=== PATIENT | female | born 1960 | race African-American/Black ===

== ENCOUNTER 2017-06-16 20:13 | Emergency (ER) | payer MEDICARE | END 2017-06-16 20:45 | disposition home or self-care (01) | LOC: ERS 20:13 | DX: S39.012A Strain of muscle, fascia and tendon of lower back, initial encounter (principal); I11.0 Hypertensive heart disease with heart failure; I50.9 Heart failure, unspecified; Z79.82 Long term (current) use of aspirin; Z79.899 Other long term (current) drug therapy; X50.9XXA Other and unspecified overexertion or strenuous movements or postures, initial encounter | CPT/HCPCS: 99283 ==

== ENCOUNTER 2017-12-20 15:15 | Emergency (ER) | payer MEDICARE ==
[2017-12-20 16:12] LABS: #Eosinphils 0.3 thou/uL (0.0-0.7); #Lymphocytes 1.8 thou/uL (1.20-3.40); #Monocytes 0.3 thou/uL (0.11-0.59); #Neutrophils 2.7 thou/uL (1.40-6.50); %Basophils 0.6 % (0.0-1.0); %Eosinophils 5.3 % (0.0-10.0); %Lymphocytes 34.5 % (21.0-51.0); %Monocytes 5.6 % (0.0-10.0); Mean Corpuscular HGB CONC 33.6 g/dL (32.0-36.0); Mean Corpuscular Hemoglobin 30.4 pg (27.0-31.0); Mean Corpuscular Volume 90.4 fl (81.0-99.0); Mean Platelet Volume 8.5 fL (7.4-10.4); Platelet Count 255 thou/uL (130-400); RBC Distribution Width 11.8 % (11.5-14.5); Red Blood Cell (RBC) Count 3.96 mill/uL (4.20-5.40); White Blood Cell (WBC) Count 5.1 thou/uL (4.8-10.8)
[2017-12-20] MEDS ORDERED: Acetaminophen 500 MG TAB ONE ×2 (16:13→16:15)
[2017-12-20] MEDS ORDERED: Ketorolac Tromethamine 60 MG/2 ML VIAL ONE (16:13)
--- NOTE | 2017-12-20 16:28 | RAD ---
CHEST ONE VIEW: 12/20/17 HISTORY: Chest and back pain. COMPARISON: 11/27/14. FINDINGS: The cardiac silhouette is magnified by projection. Pulmonary vasculature is unremarkable. Mediastinum is midline with left subclavian cardiac electronic device. No lobar consolidation or evidence of pne umothorax. IMPRESSION: 1. Borderline cardiomegaly. 2. Stable radiographic appearance of the chest. POS: [facility]
[2017-12-20 16:33] LABS: ALT (SGPT) 15 U/L (8-55); AST (SGOT) 18 U/L (5-34); Albumin 4.4 g/dL (3.5-5.0); Alkaline Phosphatase 84 U/L (40-150); Anion Gap 11 mmol/L (10-20); BUN (Urea Nitrogen) 20 mg/dL (9.8-20.1); Bilirubin, Total 0.2 mg/dL (0.2-1.2); Calc. Creatinine Clearance 0 mL/min (70-130); Calcium 9.4 mg/dL (7.8-10.44); Carbon Dioxide 27 mmol/L (22-29); Chloride 104 mmol/L (98-107); Estimated GFR-MDRD 68; Globulin 3.2 g/dL (2.4-3.5); Glucose 114 mg/dL (70-105); Potassium 3.7 mmol/L (3.5-5.1); Protein, Total 7.6 g/dL (6.0-8.3); Sodium 138 mmol/L (136-145)
[2017-12-20 16:38] LABS: Troponin I Less than 0.010 ng/mL (< 0.028)
--- NOTE | 2018-01-26 00:01 | EKG ---
Test Reason : Blood Pressure : / mmHG Vent. Rate : 081 BPM Atrial Rate : 081 BPM P-R Int : 152 ms QRS Dur : 076 ms QT Int : 362 ms P-R-T Axes : 056 004 -10 degrees QTc Int : 420 ms Normal sinus rhythm Minimal voltage criteria for LVH, may be normal variant Nonspecific ST and T wave abnormality Abnormal ECG Confirmed by LEATHA THOMAS ([id number]), greeting card editor TRACI NAM ([id number]) on 01/26/2018 12:00:32 AM Referred By: ROSALBA Confirmed By:LEATHA THOMAS
== END 2017-12-20 17:02 | disposition home or self-care (01) ==
LOC: ERS 15:15
DX: M62.830 Muscle spasm of back (principal); I11.0 Hypertensive heart disease with heart failure; I50.9 Heart failure, unspecified; Z79.82 Long term (current) use of aspirin; Z79.899 Other long term (current) drug therapy
CPT/HCPCS: 36415; 71045; 80053; 82553; 84484; 85025; 93005; J1885

== ENCOUNTER 2018-03-21 11:13 | Emergency (ER) | payer MEDICARE ==
[2018-03-21] MEDS ORDERED: Ketorolac Tromethamine 60 MG/2 ML VIAL ONE (12:00)
== END 2018-03-21 12:24 | disposition home or self-care (01) ==
LOC: ERS 11:13
DX: S16.1XXA Strain of muscle, fascia and tendon at neck level, initial encounter (principal); M43.6 Torticollis; I11.0 Hypertensive heart disease with heart failure; I50.9 Heart failure, unspecified; Z79.82 Long term (current) use of aspirin; Z79.899 Other long term (current) drug therapy; X58.XXXA Exposure to other specified factors, initial encounter
CPT/HCPCS: 96372; J1885

== ENCOUNTER 2018-08-21 12:26 | Day surgery (SDC) | payer MEDICARE ==
[2018-08-20 15:46] VITALS: BMI 39.4
[2018-08-21] MEDS ORDERED: PROPOFOL 200 MG/20 ML VIAL ONE (16:26)
--- NOTE | 2018-08-21 19:22 | OP ---
DATE OF PROCEDURE: 08/21/2018 TITLE OF PROCEDURE: Colonoscopy. PRE-PROCEDURE DIAGNOSES: 1. High-risk colon cancer screening. 2. Family history of colon cancer in a brother at age 62. POSTPROCEDURE DIAGNOSES: 1. Exam to cecum; good bowel preparation. 2. Mildly tortuous transverse colon. 3. Otherwise normal colonoscopy; no polyp or diverticulum seen. PROCEDURE IN DETAIL: Written informed consent was obtained. The patient was brought to the endoscopy suite. Total intravenous anesthesia was provided by Dr. Ezequiel Tirado. The patient was placed in the left lateral decubitus position. A digital rectal exam was performed and was normal. A Pentax video colonoscope was inserted through the anal canal and advanced under direct visualization to the cecum. Position in the cecum was verified by clear identification of the appendiceal orifice and the ileocecal valve. The quality of the bowel preparation was good. Each colon segment was examined carefully as the colonoscope was slowly withdrawn from the cecum. Vascular pattern and haustral folds appeared normal. No diverticulum, polyp, or vascular ectasia was identified. In the rectum, a careful retroflexed view demonstrated mild erythema of the distal rectal mucosa, but no other significant abnormalities. The colon was decompressed as the colonoscope was removed from the patient. She was transferred to the Day Stay surgery area for postprocedure monitoring. There were no immediate complications. RECOMMENDATIONS: 1. Resume previous diet and medications. 2. Repeat colonoscopy in 5 years for screening purposes. 3. Follow up with GI as needed. Job ID: [id number]
== END 2018-08-21 15:40 | disposition home or self-care (01) ==
LOC: SDC 12:26
PROVIDERS: ATTEND Internal Medicine Gastroenterology
PROC: 0DJD8ZZ Inspection of Lower Intestinal Tract, Via Natural or Artificial Opening Endoscopic (ICD-10-PCS; principal; 2018-08-21)
DX: Z12.11 Encounter for screening for malignant neoplasm of colon (principal); K63.89 Other specified diseases of intestine; I50.9 Heart failure, unspecified; Z79.82 Long term (current) use of aspirin; Z79.899 Other long term (current) drug therapy; Z80.0 Family history of malignant neoplasm of digestive organs; Z95.0 Presence of cardiac pacemaker

== ENCOUNTER 2019-02-11 10:32 | Outpatient (CLI) | payer MEDICARE ==
--- NOTE | 2019-02-11 11:51 | MMO ---
Bilateral MAMMO Bilat Screen [facility]. CLINICAL HISTORY: Patient is 58 years old and is seen for screening. The patient has no family history of breast cancer. The patient has no personal history of cancer. VIEWS: The views performed were: bilateral mediolateral oblique with tomosynthesis; bilateral craniocaudal with tomosynthesis; bilateral mediolateral oblique; and right craniocaudal. FILMS COMPARED: The present examination has been compared to a prior imaging study performed at [facility] on 05/17/2008. MAMMOGRAM FINDINGS: The breasts are almost entirely fat. There are no suspicious masses, suspicious calcifications, or new areas of architectural distortion. IMPRESSION: THERE IS NO MAMMOGRAPHIC EVIDENCE OF MALIGNANCY. A ROUTINE FOLLOW-UP MAMMOGRAM IN 1 YEAR IS RECOMMENDED. THE RESULTS OF THIS EXAM WERE SENT TO THE PATIENT. ACR BI-RADS Category 1 - Negative MAMMOGRAPHY NOTE: 1. A negative mammogram report should not delay a biopsy if a dominant of clinically suspicious mass is present. 2. Approximately 10% to 15% of breast cancers are not detected by mammography. 3. Adenosis and dense breasts may obscure an underlying neoplasm.
== END 2019-02-11 10:33 | disposition home or self-care (01) ==
LOC: BICMAMMO 10:32
PROVIDERS: ATTEND Family Medicine
DX: Z12.31 Encounter for screening mammogram for malignant neoplasm of breast (principal)
CPT/HCPCS: 77063; 77067

== ENCOUNTER 2019-08-20 13:39 | Outpatient (CLI) | payer MEDICARE | END 2019-08-20 13:40 | disposition home or self-care (01) | LOC: ULT 13:39 | PROVIDERS: ATTEND Internal Medicine | DX: I42.8 Other cardiomyopathies (principal); I08.1 Rheumatic disorders of both mitral and tricuspid valves | CPT/HCPCS: 93306 ==

== ENCOUNTER 2020-05-06 13:38 | Outpatient (CLI) | payer MEDICARE ==
--- NOTE | 2020-05-06 14:03 | RAD ---
LUMBAR SPINE 3 VIEWS: Date: 05/06/2020 HISTORY: Dorsalgia. FINDINGS: No evidence for acute fracture or dislocation. Mild facet arthrosis and disc osteophytosis. No signif icant malalignment. IMPRESSION: Mild lumbar spondylosis without other acute process. POS: [facility]
--- NOTE | 2020-05-06 14:05 | RAD ---
FRONTAL AND LATERAL IMAGING OF THORACIC SPINE: Date: 05/06/2020 COMPARISON: None available. HISTORY: Chronic pain. FINDINGS: There is an incompletely imaged transvenous AICD. Cardiac silhouette appears prominent. The thoracic pedicles appear intact on frontal imaging. There is mild multilevel disc space narrowing and anterior osteophyte formation throughout the thoracic spine. No acute fracture is seen. There is no anterolis thesis or retrolisthesis noted within the thoracic spine. IMPRESSION: Degenerative change. No acute osseous abnormality. POS: [facility]
== END 2020-05-06 13:39 | disposition home or self-care (01) ==
LOC: BICRAD 13:38
PROVIDERS: ATTEND Family Medicine
DX: M54.6 Pain in thoracic spine (principal); M54.9 Dorsalgia, unspecified; M47.816 Spondylosis without myelopathy or radiculopathy, lumbar region; M47.814 Spondylosis without myelopathy or radiculopathy, thoracic region
CPT/HCPCS: 36415; 72072; 72100; 80053; 80061; 83036; 85025; 86803

== ENCOUNTER 2020-05-11 17:37 | Emergency (ER) | payer MEDICARE ==
[2020-05-11] MEDS ORDERED: Lorazepam 2 MG/ML VIAL ONE (19:22)
[2020-05-11] MEDS ORDERED: Fentanyl 100 MCG/2 ML VIAL ONE (19:22)
== END 2020-05-11 20:07 | disposition home or self-care (01) ==
LOC: ERS 17:37
DX: M54.5 Low back pain (principal); J01.90 Acute sinusitis, unspecified; M54.6 Pain in thoracic spine; I11.0 Hypertensive heart disease with heart failure; I50.9 Heart failure, unspecified; Z79.899 Other long term (current) drug therapy; Z79.82 Long term (current) use of aspirin
CPT/HCPCS: 96372; 99283; J2060; J3010

== ENCOUNTER 2020-10-16 09:35 | Emergency (ER) | payer MEDICARE, MEDICAID ==
[2020-10-16] MEDS ORDERED: Ketorolac Tromethamine 30 MG/ML VIAL ONE (10:47)
== END 2020-10-16 11:09 | disposition home or self-care (01) ==
LOC: ERS 09:35
DX: J32.9 Chronic sinusitis, unspecified (principal); K02.9 Dental caries, unspecified; I11.0 Hypertensive heart disease with heart failure; I50.9 Heart failure, unspecified; E78.5 Hyperlipidemia, unspecified; Z79.82 Long term (current) use of aspirin; Z79.899 Other long term (current) drug therapy
CPT/HCPCS: 96372; 99283; J1885

== ENCOUNTER 2022-07-18 09:11 | Emergency (ER) | payer MEDICARE, OTHER ==
[2022-07-18] MEDS ORDERED: Ketorolac Tromethamine 30 MG/ML VIAL ONE (09:50)
== END 2022-07-18 11:15 | disposition home or self-care (01) ==
LOC: ERS 09:11
DX: J10.1 Influenza due to other identified influenza virus with other respiratory manifestations (principal); H10.9 Unspecified conjunctivitis; K02.9 Dental caries, unspecified; R51.9 Headache, unspecified; I11.0 Hypertensive heart disease with heart failure; I50.9 Heart failure, unspecified; E78.5 Hyperlipidemia, unspecified; Z79.899 Other long term (current) drug therapy
CPT/HCPCS: 87804; 96372; 99284; J1885

== ENCOUNTER 2023-07-31 08:44 | Outpatient (CLI) | payer OTHER | END 2023-07-31 08:45 | disposition home or self-care (01) | LOC: BICRAD 08:44 | PROVIDERS: ATTEND Nurse Practitioner Family | DX: M54.6 Pain in thoracic spine (principal); M47.816 Spondylosis without myelopathy or radiculopathy, lumbar region; M47.814 Spondylosis without myelopathy or radiculopathy, thoracic region | CPT/HCPCS: 72072; 72100 ==